=== PATIENT | female | born 1945 | race Hispanic/Latino ===

== ENCOUNTER 2016-04-28 08:42 | Emergency (ER) | payer MEDICARE, MEDICAID ==
[~2016-04-28] VITALS: Ht 152.4 cm; Wt 67.0 kg
[~2016-04-28 08:42] MED LIST: BECL8.7A6 IH; CINA30TA PO; CLON0.1T PO; HYDR-4003 PO; HYDR-656 PO; LEVO100T6 PO; LOSA100T3 PO; MTC5T PO; NEPHVIT PO; OMEP20CA11 PO; SEVE800T7 PO; TRAM50TA2 PO; [UNRECOGNIZED DRUG - CODE] MC
--- NOTE | 2016-04-28 08:50 | ED.REPORT ---
HPI-Neurologic Deficit Date of Service Apr 28, 2016 ED Provider: Moisés Mccullough DO The patient is a 70 year old female with history of valvular heart disease, hypertension, hypothyroidism, diabetes mellitus, end-stage renal disease on dialysis, and diabetic gastroparesis, who was sent to the emergency department from dialysis for left-sided facial numbness that began 1 hour prior to arrival. At this time the numbness is located to the entire left side of her body. She believes her symptoms began after she took a pill at dialysis. Her family member states her speech is at baseline. She denies any pain. She denies weakness, confusion, speech changes or vision changes. Nursing Notes Stated Complaint: LEFT ARM/NECK PAIN/FACE NUMBNESS Nursing Notes Reviewed: Yes Allergies: Coded Allergies: codeine (Verified Allergy, Severe, HALLUC,ITCHING, 05/06/15) dextromethorphan (Verified Allergy, Severe, 05/06/15) guaifenesin (Verified Allergy, Severe, 05/06/15) Uncoded Allergies: chloraPrep (Allergy, Intermediate, rash, 05/14/09) Scheduled Beclomethasone Dipropionate (Qvar) 8.7 Gm Aer.w.adap 2 PUFFS IH BID Cinacalcet (Sensipar) 30 Mg Tablet 30 MG PO DAILY Clonidine (Clonidine) 0.1 Mg Tablet 0.1 MG PO BID Levothyroxine (Levothyroxine) 100 Mcg Tablet 100 MCG PO DAILY Losartan Potassium (Cozaar) 100 Mg Tablet 100 MG PO DAILY Metoclopramide (Metoclopramide) 5 Mg Tab 5 MG PO QID Omeprazole (Omeprazole) 20 Mg Capsule.dr 20 MG PO DAILY Sevelamer Carbonate (Renvela) 800 Mg Tablet 1,600 MG PO TID Scheduled PRN Hydrocodone-Acetaminophen 5-325 mg (Hydrocodone-Acetaminophen 5-325 mg) 1 Each Tablet 1 TABLET PO q6 hr PRN PRN For Pain Polyethylene Glycol 8000 (Polyethylene Glycol 8000) 2,500 Gm Wax 2,500 GM MC DAILY PRN PRN constip Tramadol (Tramadol) 50 Mg Tablet 50 MG PO HS PRN PRN For Pain hydrOXYzine Hcl (HydrOXYzine Hcl) 25 Mg Tablet 25 MG PO TID PRN PRN For Itching Miscellaneous Medications Vitamin B Complex/Vit C (Fabienne-Wil Tablet) 1 Tab Tab 1 TAB PO General Time Seen by Provider: 08:50 Chief Complaint Other (facial numbness) Hx Obtained From: Patient, Other family... Arrived By: Wheelchair Sudden in Onset?: Yes Onset Occurred: 1 - 4 hours ago Symptom Duration: Since onset Progression Since Onset: Constant Severity: Current: No pain currently Severity: Maximum: No pain Pertinent Negative: Pt denies other symptoms Recent Healthcare: No recent hospitalization, Recent doctor visit Similar Sx Previous: No Risk Factors TPA Administration/Criteria Stroke Thrombolytic Therapy : TPA Considered: Yes Neurologist Contacted: No TPA Administered Intravenously: No, exclusion criteria (heparin this morning at dialysis) NIH Stroke Scale Level of Consciousness: Alert and responsive (0) Ask Month & Age: Both questions right (0) Open/Close Eyes/Hand [employer] Specialist: Performs both tasks (0) Horizontal EO Movements: None (0) Visual Sim: No visual loss (0) Facial Palsy: Minor paralysis (1) (tongue deviates to the right) Right Arm Motor Drift (10s): No drift 10 sec (0) Left Arm Motor Drift (10s): No drift 10 sec (0) Right Leg Motor Drift (5s): Drift, not touch bed (1) Left Leg Motor Drift (5s): Drift, not touch bed (1) Limb Ataxia FNF/Heel-Aldridge: Ataxia in 1 limb (1) (LUE) Sensation (Arms/Legs/Face): Pinprick less sharp (1) Language Aphasia: No aphasia, normal (0) Dysarthria: No dysarthria, normal (0) Extinction/Inattention: No exctinct/inattent (0) NIHSS Score: 5 ((2)) Time NIHSS Performed: 09:04 Date NIHSS Performed: Apr 28, 2016 Past Medical History Past Medical History Notes: Dialysis 3X/week (Tuesday,) Past Medical History 1. History of valvular heart disease. Echocardiogram in 2011 showed mild mitral regurgitation, mild pulmonary hypertension. EF 50% to 55%. 2. Hypertension. 3. Osteoporosis. 4. DJD. 5. Hypothyroidism. 6. Diabetic gastroparesis. 7. Retinopathy 9. ESRD Past Surgical History 1. Lap aurelia. 2. Bilateral tubal ligation. 3. Placement of a urethral sling. 4. Numerous vascular access procedures Family History noncontributory Smoking History Never Smoker Social History Alcohol Use: Denies alcohol use Drug Use: Denies drug use Other Social History: Good social support, , Local resident Ambulatory Status Independent Review of Systems Constitutional: Denies: Chills, Fever Respiratory: Denies: Non-productive cough, Shortness of breath Cardiovascular: Denies: Chest pain GI: Denies: Abdominal pain, Diarrhea, Nausea, Vomiting Musculoskeletal: Denies: Back pain, Extremity pain, Neck pain Neurologic: Reports: Numbness, Denies: Confusion, Focal weakness, Headache, Slurred speech, Unable to speak , Vision change Complete sys rev & neg: except as marked. Physical Exam Initial Vital Signs Vital Signs (First) Date Time Temp Pulse Resp B/P Pulse Ox O2 Delivery O2 Flow Rate FiO2 04/28/16 08:51 36.7 66 13 95 Room Air 04/28/16 09:19 184/60 Initial VS: Reviewed ENT: Mucous membranes moist, Conjunctiva normal, No scleral icterus Neck: Supple, Non-tender, Full range of motion Abdomen / GI: Soft, Non-tender, No guarding, No rebound, No distention Lymphatic: No lymphadenopathy Extremities: Vascular intact, Neuro intact, No swelling, No tenderness Skin: Warm, Dry, No cyanosis Psychiatric: Mood/affect normal, Behavior normal, Normal thought content General/Constitutional: Awake, Alert, No acute distress Head / Eyes: Atraumatic, Normocephalic, PERRL, EOMI, No nystagmus Respiratory / Chest: Atraumatic, Breath sounds NL, Breath sounds = bilat, No respiratory distress, No rales, No rhonchi, No wheezing Cardiovascular: Heart rate NL, Regular rhythm, Heart sounds NL, No gallop, No murmurs, No rubs, Peripheral circulation NL Neurologic: Oriented X3, Speech NL Cerebellar Dysfunction: Positive: Finger-nose abnl (LUE) Numbness on her left face, arm, and leg. Her tongue deviates to the right. Interpretation & Diagnostics Lab Results Interpretation Result Diagram: 04/28/16 0855 04/28/16 0855 Test 04/28/16 08:55 White Blood Count 3.2th/mm3 (3.8-10.1) Red Blood Count 5.16mil/mm3 (3.90-5.20) Hemoglobin 14.0g/dL (12.0-15.6) Hematocrit 42.9% (35.0-46.0) Mean Corpuscular Volume 83.1fL (81-100) Mean Corpuscular Hemoglobin 27.1pg (27.0-35.0) Mean Corpuscular Hemoglobin Concent 32.6% (32.0-37.0) Red Cell Distribution Width 14.6% (12.3-15.4) Platelet Count 84bil/L (150-400) Neutrophils (%) (Auto) 49.0% (40-74) Lymphocytes (%) (Auto) 31.3% (14-46) Monocytes (%) (Auto) 13.8% (4-12) Eosinophils (%) (Auto) 5.0% (0-5) Basophils (%) (Auto) 0.6% (0-3) Prothrombin Time 10.7sec (8.1-12.5) Prothromb Time International Ratio 1.00ratio Activated Partial Thromboplast Time 27.7sec (22.8-33.0) Sodium Level 132mEq/L (134-144) Potassium Level 4.1mEq/L (3.5-5.2) Chloride Level 89mEq/L (97-108) Carbon Dioxide Level 28mmol/L (18-29) Blood Urea Nitrogen 17mg/dL (8-27) Creatinine 3.15mg/dL (0.57-1.00) Estimat Glomerular Filtration Rate 21mL/min (>59) Glucose Level 99mg/dL (60-99) Calcium Level 9.1mg/dL (8.5-10.1) Total Bilirubin 0.7mg/dL (0.0-1.2) Aspartate Amino Transf (AST/SGOT) 43U/L (0-50) Alanine Aminotransferase (ALT/SGPT) 36U/L (0-32) Alkaline Phosphatase 281U/L (25-165) Troponin T 0.124ug/L (0.0-0.011) Total Protein 8.6g/dL (6.4-8.4) Albumin 4.3g/dL (3.4-5.0) ECG Interpretation ECG Interpretation: Sinus rhythm with a rate of 65 LVH Time: 09:19 Interpreted by: ED physician X-Ray Chest Interpretation Chest Xray Interpretation: IMPRESSION: No acute cardiopulmonary disease process. Dictated by: Chelsie Edward MD, PhD on 04/28/2016 at 9:33 Interpretation / Wet Read by: Interpret - Radiologist CT Head Interpretation IMPRESSION: 1. Acute right thalamic parenchymal hematoma. 2. Findings telephoned to Dr. Moisés Mccullough on 04/28/16 at 0919 hrs. This study fulfills neurological imaging criteria for inclusion or exclusion of acute stroke therapies based on available published neurological guidelines. Dictated by: Chelsie Edward MD, PhD on 04/28/2016 at 9:18 Study: Head CT no contrast Interpretation / Wet Read by: Interpret - Radiologist, Discussed w radiologist Re-Eval/Medical Decision Med Decision/Clinical Course Hemorrhagic stroke. Overall patient scores 2 points on the INH stroke scale that seem to be lateralizing and attributable to her acute bleed. Blood pressure controlled with a nicardipine drip. Platelets transfused due to thrombocytopenia. Multiple evaluations. It should be noted, [facility] neurology was initially consulted though it was unclear if a bed would be available today, subsequently [facility], [facility] were contacted. Ultimately this patient will be transferred to [facility] via ambulance stabilized within the every capacity. Source of Hx: Old records, Family Re-Evaluation/Progress #1: Time of Eval: 08:52 Re-Evaluation/Progress Note: Code stroke called. Re-Evaluation/Progress #2: Time of Eval: 08:56 Re-Evaluation/Progress Note: ED nurse called dialysis. The patient was given Clonidine. Re-Evaluation/Progress #3: Time of Eval: 08:57 Re-Evaluation/Progress Note: The patient is going to CT. Re-Evaluation/Progress #4: Time of Eval: 09:13 Re-Evaluation/Progress Note: The numbness has improved but still present. Re-Evaluation/Progress #5: Time of Eval: 09:19 Re-Evaluation/Progress Note: Discussed plan for admission with the patient and family. Re-Evaluation/Progress #6: Time of Eval: 09:36 Re-Evaluation/Progress Note: Rechecked the patient. Discussed head CT results, diagnosis, and plan for transfer. All questions were addressed. Consultation #1: Call Returned at: 09:31 Note: Discussed the patients case with Dr. Ahumada, neurosurgeon from [facility]. He recommends giving protamine if PTT elevated. He will call ICU at [facility] to see if there is a bed. He agrees with need for transfer. Consultation #2: Call Returned at: 11:00 Note: There are no beds available at [facility] at this time. Consultation #3: Call Returned at: 11:37 Note: Contacted [facility] and [facility] and there are no available beds. Consultation #4: Call Returned at: 11:42 Note: Discussed the patient's case with Khloe from the [facility] transfer [place]. Consultation #5: Call Returned at: 11:43 Note: Spoke with Dr. Peña from . Tentatively accepts transfer. Will call back to confirm. Consultation #6: Call Returned at: 11:55 Note: There is now a bed available at [facility]. The patient will be transferred there. Consultation #7: Call Returned at: 12:01 Note: ED community support worker called [facility] to let them know we have found a different bed for the patient. Counseled Regarding: Diagnosis, Lab results, Need for transfer Discharge & Departure Impression: Primary Impression: Thalamic hemorrhage Disposition: Transfer, Acute Care Facility Receiving Hospital: [facility] Transfer Accepted: Yes Transfer Accepted at: 09:30 Transfer Reason: Higher level of care Spoke with: Attending physician (Dr. Ahumada) Patient Status: Stable Patient Informed: Yes Discharge Condition All VS Reviewed: Yes Condition: Stable Referrals: Lisa Alexander MD (PCP) Crit Care Except Billable Proc Time Spent: 75-104 minutes Services Performed: Patient management by me, Time spent at bedside, Reviewing test results, Reviewing imaging, Discussing patient care, Documentation in record, Time with fam/surrogate Critical Care Notes: See MDM Scribe Attestation Portions of this note were transcribed by Gricelda Schultz. I, Dr. Mccullough personally performed the history, physical exam and medical decision-making; I reviewed and confirmed the accuracy of the information in the transcribed note. Signed by: Luciano De La Fuente, 04/28/2016 and 1205. copies to: Lisa Alexander MD, Timothy S DO Apr 28, 2016 08:50 Gricelda Schultz Apr 28, 2016 08:58
[2016-04-28 08:51] VITALS: PULSE 66; RESP 13; O2SAT 95
[2016-04-28 09:14] LABS: BASOPHILS % (AUTO) 0.6 % (0-3); MONOCYTES % (AUTO) 13.8 % (4-12); Mean Corpuscular Hemoglobin 27.1 pg (27.0-35.0); Mean Corpuscular Volume 83.1 fL (81-100); Platelet Count 84 bil/L (150-400)
[2016-04-28 09:19] VITALS: BP 184/60; PULSE 66; RESP 12; O2SAT 96
--- NOTE | 2016-04-28 09:25 | DRSVH ---
PROCEDURE: CT BRAIN (TPA) ([id number]) INDICATIONS: Stroke TECHNIQUE: Noncontrast 4.5 mm thick angled axial sections acquired from the foramen magnum to the vertex, with c oronal reformats. COMPARISON: None. FINDINGS: Image quality: Excellent. CSF spaces: Basal cisterns are patent. No extra-axial fluid collections. The ventricles are symmet royer in size and shape. Brain: Small, approximately 5 x 7 mm hyperdensity noted in the right thalamus compatible with acute parenchymal bleed. No intracranial masses. There is cerebral volume loss for age, with resultant alvarado tricular and sulcal prominence. There are periventricular and deep white matter chronic small vessel ischemic changes. There is intracranial internal carotid artery and vertebral artery atherosclerosi s. Skull and face: Calvarium and visualized facial bones appear intact, without suspicious lesions. Sinuses: Mucosal thickening noted in the visualized maxillary sinuses, the anterior ethmoid air cells bilaterally and the right frontal sinus. The mastoids are clear. IMPRESSION: 1. Acute right thalamic parenchymal hematoma. 2. Findings telephoned to Dr. Moisés Mccullough on 04/28/16 at 0919 hrs. This study fulfills neurological imaging criteria for inclusion or exclusion of acute stroke therapie s based on available published neurological guidelines. Dictated by: Chelsie Edward MD, PhD on 04/28/2016 at 9:18 Approved by: Chelsie Edward MD, PhD on 04/28/2016 at 9:23
--- NOTE | 2016-04-28 09:36 | DRSVH ---
PROCEDURE: X-RAY CHEST ONE VIEW, PORTABLE ([id number]) INDICATIONS: cva TECHNIQUE: One view of the chest was acquired. COMPARISON: [facility], CR, CHEST 1VW (PORTABLE), 07/10/2014, 0:31. FINDINGS: Surgical changes and devices: None. Lungs and pleura: No pleural effusions or pneumothorax. Lungs are clear of acute opacities. Bilater al lateral linear and patchy lung densities are stable compared to prior examination likely represent parenchymal scarring. Mediastinum: Mediastinal contours appear normal. Heart size is normal. Bones and chest wall: No suspicious bony lesions. Overlying soft tissues appear unremarkable. IMPRESSION: No acute cardiopulmonary disease process. Dictated by: Chelsie Edward MD, PhD on 04/28/2016 at 9:33 Approved by: Chelsie Edward MD, PhD on 04/28/2016 at 9:34
[2016-04-28 09:57] LABS: TROPONIN T 0.124 ug/L (0.0-0.011)
[2016-04-28] MEDS: NiCARdipine Inj 25 MG in Dextrose 5% 240 ML IV SCH ×2 (10:00→10:10)
[2016-04-28 10:17] VITALS: BP 143/48
--- NOTE | 2016-04-28 10:34 | NUR ---
Evaluation completed. Please go to "Notes" then click on "Assessments and Notes" (bottom left corner of screen). Then select appropriate discipline tab on top of screen.
[2016-04-28 13:18] VITALS: BP 136/47; PULSE 67; RESP 16; O2SAT 96
== END 2016-04-28 13:20 | disposition short-term general hospital (02) ==
LOC: SED 08:42
DX: I61.9 Nontraumatic intracerebral hemorrhage, unspecified (principal); D69.6 Thrombocytopenia, unspecified; I12.0 Hypertensive chronic kidney disease with stage 5 chronic kidney disease or end stage renal disease; E03.9 Hypothyroidism, unspecified; E11.22 Type 2 diabetes mellitus with diabetic chronic kidney disease; N18.6 End stage renal disease; E11.43 Type 2 diabetes mellitus with diabetic autonomic (poly)neuropathy; K31.84 Gastroparesis; Z86.79 Personal history of other diseases of the circulatory system; Z99.2 Dependence on renal dialysis; Z88.5 Allergy status to narcotic agent; Z88.8 Allergy status to other drugs, medicaments and biological substances
CPT/HCPCS: 36415; 36430; 70450; 71010; 80053; 82948; 84484; 85025; 85610; 85730; 92610; 93005; 96374; 99291; 99292; G8996; G8997; P9019